=== PATIENT | male | born 1960 | race Caucasian/White ===

== ENCOUNTER 2025-07-30 17:55 | Emergency (ER) | payer SELFPAY ==
[~2025-07-30] VITALS: Ht 175.3 cm; Wt 86.7 kg
[2025-07-30] MEDS: ONDANSETRON 4MG 2ML VIAL IV ONE (21:31)
[2025-07-30] MEDS: KETOROLAC 30 MG/ML 1 ML VIAL IV ONE (21:33)
[2025-07-30 21:36] LABS: BASO # 0.0 10^3/uL (0.0-0.2); BASO % 0.5 % (0.0-1.0); EOS # 0.1 10^3/uL (0.0-0.5); EOS % 1.5 % (0.0-3.0); LYMPH # 1.0 10^3/uL (1.5-5.0); LYMPH % 12.6 % (24.0-44.0); MONO # 0.5 10^3/uL (0.0-0.8); MONO % 6.1 % (2.0-8.0); NEUTROPHILS # 6.4 10^3/uL (1.5-8.5); NEUTROPHILS % 78.8 % (36.0-66.0); PLATELET COUNT, AUTOMATED 244 10^3/uL (150-450)
[2025-07-30 21:45] LABS: ERYTHROCYTE SEDIMENTATION RATE 35 mm/hr (0-20)
[2025-07-30 22:05] LABS: C REACTIVE PROTEIN QUANTITATIV 5.18 MG/DL (<1.0); CALCIUM LEVEL 9.6 MG/DL (8.3-10.6); CARBON DIOXIDE LEVEL 29 MMOL/L (20-31); CHLORIDE LEVEL 100 MMOL/L (98-107); CREATININE FOR GFR 0.90 MG/DL (0.70-1.30); GLOMERULAR FILTRATION RATE > 90.0 (>49); POTASSIUM SERUM 4.9 MMOL/L (3.5-5.1); SODIUM LEVEL 138 MMOL/L (136-145)
[2025-07-30] MEDS ORDERED: MEDR4PAK PO (23:18)
[2025-07-30 23:48] VITALS: BP 115/76; TEMP 97.7; O2SAT 98
[2025-08-04 20:31] LABS: LYME TOTAL ANTIBODY CIA <= 0.90 Index (<=0.90)
== END 2025-07-30 23:49 | disposition home or self-care (01) ==
LOC: M ED 17:55
DX: M18.0 Bilateral primary osteoarthritis of first carpometacarpal joints (principal); M19.011 Primary osteoarthritis, right shoulder; M19.012 Primary osteoarthritis, left shoulder; Z87.891 Personal history of nicotine dependence; Z79.899 Other long term (current) drug therapy
CPT/HCPCS: 73030; 73110; 80048; 84550; 85025; 85652; 86140; 86618; 87486; 87581; 87633; 87798; 96374; 96375; 99284; J1885; J2405